=== PATIENT | female | born 1985 | race Caucasian/White ===

== ENCOUNTER 2016-09-28 17:24 | Emergency (ER) | payer BC, OTHER | END 2016-09-28 20:08 | disposition home or self-care (01) | LOC: H.EROB2 17:24 → H.L&D 18:14 → H.EROB2 20:08 | DX: O47.03 False labor before 37 completed weeks of gestation, third trimester (principal); Z3A.37 37 weeks gestation of pregnancy ==

== ENCOUNTER 2016-10-21 11:15 | Emergency (ER) | payer BC, OTHER ==
--- NOTE | 2016-10-21 13:22 | OBDCSUM ---
Datetime: 10/21/2016 13:05 Discharged to, Provider: Home Follow up at, Provider: [facility] Disch Instr Activity: Normal activity Disch Instr Diet: Regular Discharge Diagnosis, Provider: False Labor - Undelivered Discharge Time: 10/21/2016 13:10 Follow up in weeks, Provider: 10/24/16 at 8 pm for scheduled Induction Disch Referrals: None
--- NOTE | 2016-10-22 06:30 | OBHP ---
Datetime: 10/21/2016 11:30 IP Adm Impression: Term, intrauterine ; No Active Labor IP Admit Plan: Observation/Evaluation Admit Comment, IP Provider: IUP at 40+ c/o CTX pain 3/10 q 10m; no SROM; passed scant browish discharge. POBH: G1 PGYNH: denies STD PMH: denies PSH: denies NKA PSoH: denies smoking ETOH Drugs A; IUP at 40+w latent phase of labor PLAN: check NST Pelvic Type - PN: Adequate Extremities - PN: Normal Abdomen - PN: Normal Back - PN: Normal Breast - PN: Not Done Lungs - PN: Normal Heart - PN: Normal Thyroid - PN: Normal Neurologic - PN: Normal HEENT - PN: Normal General - PN: Normal Membranes, Provider: Intact Comments, ACOG Physical Exam: ROS: General: no fatigue; no wekaness HEENT: no [place]; no visual disut RESP: no cough; no SOB GI: noN/V/D : no F/U/D MS: no joint pain Pool Provider: Negative IP Hx Assessment: The History has been Reviewed and is Current EGA AdmitDate IP: 40.3 IP Chief Complaint: Uterine contractions Dilatation, Provider: 1 Effacement, Provider: long Station, Provider: high Genitourinary Exam: Normal DTRs - PN: Normal
== END 2016-10-21 13:31 | disposition home or self-care (01) ==
LOC: H.EROB2 11:15
DX: O47.1 False labor at or after 37 completed weeks of gestation (principal); Z3A.40 40 weeks gestation of pregnancy; O48.0 Post-term pregnancy

== ENCOUNTER 2016-10-22 20:50 | Observation (INO) | payer BC, OTHER ==
[2016-10-22 21:12] VITALS: BMI 33.1
--- NOTE | 2016-10-24 20:44 | OBHP ---
Datetime: 10/23/2016 09:32 IP Adm Impression: Term, intrauterine ; No Active Labor; Intact Membranes IP Admit Plan: Observation/Evaluation; Discharge home Admit Comment, IP Provider: 30-year-old 00 presented to the ED complaining of contractions. Mookie luis denies any leakage of fluids or vaginal bleeding. Patient reports good movement. records reviewed. Past medical history none Past surgical history none Medications vitamins No known drug allergies Obstetrical history first trimester spontaneous loss of 1 Social history no tobacco, no alcohol, no drugs Physical exam: Refer to physical exam findings Assessment: 30-year-old 010 at 40 weeks and 5 days gestational age with no evidence of labor at this mary e. Patient was observed at the ED for multiple hours. After reexamination, no evidence of active labo r. Maternal well-being and well-being reassuring at this time. Plan: Patient is scheduled for post dates induction of labor tomorrow. Patient discharged home with labo r precautions. Pelvic Type - PN: Adequate Extremities - PN: Normal Abdomen - PN: Normal Back - PN: Normal Breast - PN: Normal Lungs - PN: Normal Heart - PN: Normal Thyroid - PN: Normal Neurologic - PN: Normal HEENT - PN: Normal General - PN: Normal FHR - Baseline A Provider: 120s-130s Membranes, Provider: Intact Contraction Comments Provider: irregular pattern Pool Provider: Negative IP Hx Assessment: The History has been Reviewed and is Current EGA AdmitDate IP: 40.5 Vital Signs Provider: Reviewed; Within Normal Limits IP Chief Complaint: Uterine contractions NICHD Variability Prov Fetus A: Moderate 6-25bpm NICHD Accel Fetus A IP Provider: 15X15 FHR Category Provider Fetus A: Category I NICHD Decel Fetus A IP Provider: None Dilatation, Provider: 1-2 Effacement, Provider: 50 Station, Provider: -3 Genitourinary Exam: Normal DTRs - PN: Normal
== END 2016-10-23 09:47 | disposition home or self-care (01) ==
LOC: H.EROB2 20:50 → H.EROB 23:45
PROVIDERS: ADMIT Obstetrics & Gynecology; ATTEND Obstetrics & Gynecology
DX: O47.1 False labor at or after 37 completed weeks of gestation (principal); Z3A.40 40 weeks gestation of pregnancy; O48.0 Post-term pregnancy
CPT/HCPCS: 99284; G0378

== ENCOUNTER 2016-10-24 21:10 | Inpatient (IN) | payer BC, OTHER ==
[2016-10-24 22:38] LABS: ALKALINE PHOSPHATASE 152 U/L (38-126); ALT/SGPT 25 U/L (9-52); AST/SGOT 26 U/L (14-36); BILIRUBIN,TOTAL 0.1 mg/dl (0.2-1.3); BLOOD UREA NITROGEN 6 mg/dl (7-17); CARBON DIOXIDE 20 mmol/L (22-30); CHLORIDE 107 mmol/L (98-107); GFR AFRICAN-AMERICAN > 60; GLUCOSE,RANDOM 73 mg/dL (65-105); SODIUM 136 mmol/l (132-148); TOTAL PROTEIN 6.9 G/DL (6.3-8.2)
[2016-10-24 22:40] LABS: BASO % 0.2 % (0.0-2.0); EOS # 0.2 K/uL (0.0-0.7); EOS % 1.8 % (0.0-4.0); HEMATOCRIT 41.5 % (34.0-47.0); LYMPH # 1.6 K/uL (1.0-4.3); LYMPH % 15.6 % (20.0-40.0); MEAN CELL VOLUME 87.8 fl (81.0-99.0); MEAN CORPUSCULAR HEMOGLOBIN 29.4 pg (27.0-31.0); MEAN CORPUSCULAR HGB CONC 33.5 g/dL (33.0-37.0); MEAN PLATELET VOLUME 11.2 fl (7.2-11.7); MONO # 0.7 K/uL (0.0-0.8); NEUT # 7.6 K/uL (1.8-7.0); NEUT % 75.4 % (50.0-75.0); NRBC % 0.1 % (0.0-0.0); RED CELL DISTRIBUTION WIDTH 13.3 % (11.5-14.5); WHITE BLOOD COUNT 10.1 K/uL (4.8-10.8)
[2016-10-24 23:07] VITALS: BP 135/83; PULSE 76; TEMP 97.6
[2016-10-25] MEDS ORDERED: Nalbuphine 20 mg/ml Inj (1 ml) IVP PRN (00:52)
[2016-10-25 01:40] LABS: RBC URINE 2 /hpf (0-3); URINE BACTERIA MOD (<OCC); URINE BILIRUBIN NEGATIVE (NEGATIVE); URINE BLOOD SMALL (NEGATIVE); URINE COLOR YELLOW (YELLOW); URINE GLUCOSE (UA) NEG (Normal); URINE KETONE NEGATIVE (NEGATIVE); URINE LEUKOCYTE ESTERASE NEG Leu/uL (Negative); URINE PROTEIN NEGATIVE (NEGATIVE); URINE UROBILINOGEN 0.2-1.0 mg/dL (0.2-1.0); WBC URINE 2 /hpf (0-5)
[2016-10-25] MEDS: Lactated Ringer's 1,000 ML IV SCH ×4 (03:15→10:10)
[2016-10-25] MEDS ORDERED: Oxytocin 30 units/LR 500ML 30 U/500 ML BAG IV SCH (09:00)
--- NOTE | 2016-10-25 09:07 | OBPN ---
Datetime: 10/25/2016 09:01 IP Progress Impression: Normal progression of labor; Reassuring heart rate IP Informed Consent Obtain: Vaginal Delivery; Risks, Benefits and Alternatives Discussed IP Procedures: Sterile Vag Exam IP Progress Plan: Continue present management; Augmentation; Anticipate Vaginal Delivery Pool Provider: Positive Membranes, Provider: Ruptured Contraction Comments Provider: occ FHR - Baseline A Provider: 120 Presentation-Admit: Vertex IP Progress Note Comment: She had cervidil removed this morning and she was 4-5cm. She was 6cm at 6 am. A: 41w Active phase of labor slow progress secondary to irregular CTX PLAN: discussion with pt...will start Pitocin augmentation...observe progress NICHD Accel Fetus A IP Provider: 15X15 FHR Category Provider Fetus A: Category I NICHD Variability Prov Fetus A: Moderate 6-25bpm Dilatation, Provider: 5-6 Effacement, Provider: 100 Station, Provider: -1 NICHD Decel Fetus A IP Provider: None Datetime: 10/23/2016 09:32 Vital Signs Provider: Reviewed; Within Normal Limits
--- NOTE | 2016-10-25 12:17 | OBPN ---
Datetime: 10/25/2016 12:10 IP Progress Impression: Normal progression of labor; Reassuring heart rate IP Informed Consent Obtain: Vaginal Delivery; Risks, Benefits and Alternatives Discussed IP Procedures: Intrauterine Pressure Catheter IP Progress Plan: Continue present management; Augmentation Pool Provider: Positive Membranes, Provider: Ruptured Contraction Comments Provider: 2-4m FHR - Baseline A Provider: 120 Presentation-Admit: Vertex IP Progress Note Comment: SHe feels comfortable A: active pahse of labor iregualr CTX IUPC placed to better monitor CTX pattern Pitocin at 2miu/h currently NICHD Accel Fetus A IP Provider: 15X15 FHR Category Provider Fetus A: Category I NICHD Variability Prov Fetus A: Moderate 6-25bpm Dilatation, Provider: 6 Effacement, Provider: 100 Station, Provider: -1 NICHD Decel Fetus A IP Provider: None
--- NOTE | 2016-10-25 15:55 | OBPN ---
Datetime: 10/25/2016 15:50 IP Progress Impression: Normal progression of labor; Reassuring heart rate IP Informed Consent Obtain: Vaginal Delivery; Risks, Benefits and Alternatives Discussed IP Procedures: Intrauterine Pressure Catheter IP Progress Plan: Continue present management; Augmentation; Anticipate Vaginal Delivery Pool Provider: Positive Membranes, Provider: Ruptured Contraction Comments Provider: 2-3m FHR - Baseline A Provider: 130 Presentation-Admit: Vertex IP Progress Note Comment: Notified that IUPC wsa not working well/clogged? External toco placed. A: Active phase of labor PIoticn at 8miu/hr...IUPC placed to monitor CTX intensity NICHD Accel Fetus A IP Provider: 15X15 FHR Category Provider Fetus A: Category I NICHD Variability Prov Fetus A: Moderate 6-25bpm Dilatation, Provider: anterior lip Effacement, Provider: 100 Station, Provider: 0 NICHD Decel Fetus A IP Provider: None
--- NOTE | 2016-10-25 17:00 | OBADHP ---
Datetime: 10/25/2016 15:50 Presentation-Admit: Vertex FHR - Baseline A Provider: 130 Membranes, Provider: Ruptured Contraction Comments Provider: 2-3m Pool Provider: Positive NICHD Variability Prov Fetus A: Moderate 6-25bpm NICHD Accel Fetus A IP Provider: 15X15 Dilatation, Provider: anterior lip Effacement, Provider: 100 Station, Provider: 0 Datetime: 10/24/2016 21:13 Admit Comment, IP Provider: 30-year-old edc 10/18 by LMP _ 8wk us presents for induction 2nd g[address] [facility]. She receives pnc with dr. clark. Patient denies decreased fm, leakage of fluids or vaginal bleeding. Patient reports good movement. records reviewed. Past medical history none Past surgical history none Medications vitamins No known drug allergies Obstetrical history first trimester spontaneous loss of 1 Social history no tobacco, no alcohol, no drugs Pelvic Type - PN: Adequate Extremities - PN: Normal Abdomen - PN: Normal Back - PN: Normal Breast - PN: Not Done Lungs - PN: Normal Heart - PN: Normal Thyroid - PN: Normal Neurologic - PN: Normal HEENT - PN: Normal General - PN: Normal Comments, ACOG Physical Exam: GBS NEG/B+/HEPBNEG/RI IP Hx Assessment: The History has been Reviewed and is Current IP Chief Complaint: Other FHR Category Provider Fetus A: Category I NICHD Decel Fetus A IP Provider: None Genitourinary Exam: Normal DTRs - PN: Normal EGA AdmitDate IP: 40.6 IP Adm Impression: Term, intrauterine ; No Active Labor IP Admit Plan: Admit to unit; Initiate labor induction protocol Datetime: 10/23/2016 09:32 Vital Signs Provider: Reviewed; Within Normal Limits
[2016-10-25] MEDS ORDERED: ceFAZolin 2 GM in Sodium Chloride 0.9% 100 ML IVPB ONE (19:43)
[2016-10-25] MEDS ORDERED: Oxycodone/Acetaminophen 5/325 mg Tab PO PRN ×2 (21:40→23:03)
[2016-10-25] MEDS ORDERED: Simethicone 80 mg Chewtab PO SCH (22:00)
[2016-10-25] MEDS ORDERED: DiphenhydrAMINE 50 mg/ml Inj IVP PRN ×2 (23:03→23:31)
[2016-10-26] MEDS: Lactated Ringer's 1,000 ML IV SCH ×2 (02:40→08:46)
[2016-10-26 06:55] LABS: MEAN CELL VOLUME 88.3 fl (81.0-99.0); MEAN CORPUSCULAR HEMOGLOBIN 29.2 pg (27.0-31.0); RED CELL DISTRIBUTION WIDTH 13.5 % (11.5-14.5); WHITE BLOOD COUNT 18.5 K/uL (4.8-10.8)
--- NOTE | 2016-10-26 09:51 | OBPPN ---
Datetime: 10/26/2016 09:50 PP Progress Note Prov: Patient doing well ambulating sitting in chair tolerating diet reports minima l lochia pain well-controlled Vital signs stable afebrile Uterus firm below the umbilicus Incision clean dry and intact Extremities no Homans Postoperative day #2 Encourage ambulation, regular diet Motrin and Percocet as needed
[2016-10-26 17:52] LABS: EOS % 0.3 % (0.0-4.0); LYMPH # 0.9 K/uL (1.0-4.3); LYMPH % 4.7 % (20.0-40.0); MEAN CELL VOLUME 88.6 fl (81.0-99.0); MEAN CORPUSCULAR HGB CONC 32.7 g/dL (33.0-37.0); MEAN PLATELET VOLUME 10.2 fl (7.2-11.7); MONO # 0.6 K/uL (0.0-0.8); MONO % 3.2 % (0.0-10.0); NEUT # 16.8 K/uL (1.8-7.0); NEUT % 91.8 % (50.0-75.0); PLATELET COUNT 122 K/uL (130-400); RED CELL DISTRIBUTION WIDTH 13.7 % (11.5-14.5); WHITE BLOOD COUNT 18.3 K/uL (4.8-10.8)
[2016-10-26 19:56] LABS: EOSINOPHIL 1 % (0-7); NEUTROPHIL 85 % (42-75); TOTAL CELLS COUNTED 100
[2016-10-26] MEDS: Oxycodone/Acetaminophen 5/325 mg Tab PO PRN (21:36)
[2016-10-26] MEDS: Simethicone 80 mg Chewtab PO SCH (21:36)
[2016-10-27] MEDS ORDERED: cefOXitin Sodium 1 GM in Sodium Chloride 0.9% 100 ML IVPB SCH
[2016-10-27] MEDS: Simethicone 80 mg Chewtab PO SCH ×5 (05:56→21:48)
[2016-10-27 07:29] LABS: BASO % 0.2 % (0.0-2.0); EOS # 0.1 K/uL (0.0-0.7); EOS % 0.7 % (0.0-4.0); HEMATOCRIT 31.9 % (34.0-47.0); LYMPH # 0.9 K/uL (1.0-4.3); LYMPH % 5.1 % (20.0-40.0); MEAN CELL VOLUME 89.2 fl (81.0-99.0); MEAN CORPUSCULAR HEMOGLOBIN 29.4 pg (27.0-31.0); MEAN PLATELET VOLUME 9.8 fl (7.2-11.7); MONO # 0.7 K/uL (0.0-0.8); MONO % 3.9 % (0.0-10.0); NEUT # 15.4 K/uL (1.8-7.0); NEUT % 90.1 % (50.0-75.0); PLATELET COUNT 124 K/uL (130-400); RED CELL DISTRIBUTION WIDTH 13.8 % (11.5-14.5)
[2016-10-27] MEDS: Oxycodone/Acetaminophen 5/325 mg Tab PO PRN ×3 (08:50→20:29)
--- NOTE | 2016-10-27 09:02 | OBPPN ---
Datetime: 10/27/2016 08:43 PP Pain Prov: Within normal limits PP Nausea Prov: Denies PP Flatus Prov: Yes PP BM Prov: No PP Abdomen/Uterus Prov: Normal PP Lochia Prov: Normal PP C/S Incision Prov: Normal PP Progress Prov: Normal PP Impression Prov: Endometritis PP Plan Prov: Continue present management; Antibiotic therapy PP Progress Note Prov: POD 2 s/p Primary LTCS, T-inverted, for failure of descent Pt started on mefoxin for endometritis Encourage ambulation Vital Signs Provider PP: Reviewed
[2016-10-27] MEDS: cefOXitin Sodium 1 GM in Sodium Chloride 0.9% 100 ML IVPB SCH ×3 (09:22→20:27)
[2016-10-27 10:47] LABS: MYELOCYTE 1 % (0-0); NEUTROPHIL 88 % (42-75); TOTAL CELLS COUNTED 100
--- NOTE | 2016-10-27 10:52 | CP.PCM.CON ---
History of Present Illness - History of Present Illness History of Present Illness: Hospitalist Consult H&P (Patient was seen at 10:30 AM 10/27/16 [id number] with and Nurse Enriqueta present) 30 year old female who is S/P on 10/24/16 for failure to decent at 41 weeks. Medicine Team was consulted for evaluation of Tachycardia. Currently upon FULL ROS there is NO chest pain, NO palpitations, NO SOB/Cough/ Wheezing/Hemoptysis, NO dysphagia/odynophagia, NO abdominal pain, (+) Soreness in the suprapubic area at the surgical site especially when getting up from a sitting or laying down position, NO n/v/d/c (no black/bloody stools, NO burning/pain with urination, NO lightheadedness/dizziness, NO headaches, NO new changes in vision/eye pain/loss of vision, NO new changes in hearing/ear pain/tinnitus, (+) Paresthesias: numbness alternating with tingling sensation of the bilateral hands/fingers since 7 months (this was evaluated by an unspecified physician who referred patient to him by Senior Sales Associate Dr. Tapia, this is likely secondary to the edema of ). PMHx: First Trimester Loss PSHx: ALL: NDKA Medications: Please see list Social Hx: Lives with , Homemaker, NO alcohol, NO tobacco, NO illicit drugs Family Hx: Mom (), Dad (HTN) Exam: HEENT: EOMI, PERRLA, NCA, NO cervical/supraclavicular/submandibular lymphadenopathy, NO thyromegaly, NO pharyngeal erythema/exudate, Nasal Turbinates are nonerythematous but dry, Oral Mucosa is dry. Cardio: NS1 and NS2, NO M/R/G, Tachycardia at 120 bpm as measured by me Respiratory: CTA B/L, NO R/R/W, Decreased breath sounds at lung bases GI: BSx4, Distended, Soft, Tenderness to palpation at surgical site which is clean/without exudate/not warm/no erythema/sutures intact, Liver and Spleen were not examined Neuro: CN II through XII are grossly intact Extremities: 2+ Pitting Edema of the bilateral lower legs from feet to the tibial tuberosities, NON pitting edema of the bilateral forearms, Pulses are strong and equal Psychiatry: Anxious affect Assessment and Plan: 1). Sinus Tachycardia EKG done today shows Sinus Tachycardia at 124 bpms This could be secondary to multiple possible issues: infection/fever, anxiety, DVT/PE Please see below for further details. 2). Leukocytosis Patient had a Tmax of 101 at midnight last night and low grade fever of 99 earlier today Could this be secondary to Endometritis? Patient has already been started on Cefoxitin 1gm IV 4x/day by OB Florastor has been added for GI prophylaxis because she is on Cefoxitin Blood Cultures x 2 and Urine Culture ordered stat 3). Possible DVT/PE Patient has 3 Wells Criteria: recent surgery, signs of DVT on exam, and Hear Rate > 100 D-dimer not ordered as it would be likely positive considering recent C section Bilateral Upper and Lower Extremities Venous Dopplers STAT CT Angio Chest STAT 4). Anxiety This is understandable considering that this is the patient's first born child ( prior first trimester loss of ) and this child has been born with some unspecified facial asymmetry for which he is being transferred to [facility] for further evaluation. Once the DVT/PE workup is complete, we will consider ordering Metoprolol (as this will help with the SVT as well as the axiety) vs Adenosine and possible Psychiatry referral Please call me if you have any questions: [phone] Wilbur Tellez D.O. Past Patient History - Past Social History Smoking Status: Never Smoked Meds Allergies/Adverse Reactions: Allergies Allergy/AdvReac Type Severity Reaction Status Date / Time No Known Allergies Allergy Verified 09/28/16 19:26 - Medications Medications: Current Medications Diphenhydramine HCl (Benadryl) 50 mg IVP Q6 PRN PRN Reason: Itching / Pruritus Cefoxitin Sodium 1 gm/ Sodium (Chloride) 100 mls @ 100 mls/hr IVPB 0200,0800, 1400,2000 AMITA Last Admin: 10/27/16 09:22 Dose: 100 mls/hr Ibuprofen (Motrin Tab) 600 mg PO Q4H PRN PRN Reason: Pain, Mild (1-3) Ketorolac Tromethamine (Toradol) 30 mg IVP Q6 PRN PRN Reason: Pain, moderate (4-7) Last Admin: 10/26/16 11:27 Dose: 30 mg Metoclopramide HCl (Reglan) 10 mg IVP Q6H PRN PRN Reason: Nausea/Vomiting Ondansetron HCl (Zofran Inj) 4 mg IVP Q6 PRN PRN Reason: Nausea/Vomiting Oxycodone/Acetaminophen (Percocet 5/325 Mg Tab) 1 tab PO Q4 PRN PRN Reason: Pain, moderate (4-7) Stop: 10/28/16 21:41 Last Admin: 10/27/16 08:50 Dose: 1 tab Sennosides (Senokot Tab) 17.2 mg PO HS AMITA Last Admin: 10/26/16 21:35 Dose: 17.2 mg Simethicone (Mylicon Chew Tab) 80 mg PO Q6 AMITA Last Admin: 10/27/16 09:22 Dose: 80 mg Zolpidem Tartrate (Ambien) 5 mg PO HS PRN PRN Reason: Insomnia Results - Vital Signs Recent Vital Signs: Last Vital Signs Temp 97.6 F 10/24/16 23:05 Pulse 76 10/24/16 23:05 Resp BP 135/83 10/24/16 23:05 Pulse Ox - Labs Result Diagrams: 10/27/16 07:19 10/24/16 22:25 Labs: Laboratory Results - last 24 hr 10/26/16 10/27/16 17:40 07:19 WBC 18.3 H 17.0 H RBC 3.84 3.58 L Hgb 11.1 L 10.5 L Hct 34.0 31.9 L MCV 88.6 89.2 MCH 29.0 29.4 MCHC 32.7 L 33.0 RDW 13.7 13.8 Plt Count 122 L 124 L MPV 10.2 9.8 Neut % (Auto) 91.8 H 90.1 H Lymph % (Auto) 4.7 L 5.1 L [place] % (Auto) 3.2 3.9 Eos % (Auto) 0.3 0.7 Baso % (Auto) 0.0 0.2 Neut # 16.8 H 15.4 H Lymph # 0.9 L 0.9 L [place] # 0.6 0.7 Eos # 0.0 0.1 Baso # 0.0 0.0 Neutrophils % (Manual) 85 H 88 H Band Neutrophils % 3 H 4 H Lymphocytes % (Manual) 5 L 5 L Monocytes % (Manual) 6 2 Eosinophils % (Manual) 1 Myelocytes % 1 H Platelet Estimate Normal Slightly decreased L Hypochromasia (manual) Slight Slight Poikilocytosis (manual Slight Anisocytosis (manual) Slight Microcytosis (manual) Slight
[2016-10-27 11:55] LABS: ALB/GLOB RATIO 0.9 (1.0-2.1); ALKALINE PHOSPHATASE 119 U/L (38-126); ALT/SGPT 35 U/L (9-52); AST/SGOT 54 U/L (14-36); BILIRUBIN,TOTAL 0.2 mg/dl (0.2-1.3); BLOOD UREA NITROGEN 7 mg/dl (7-17); CALCIUM 8.3 mg/dL (8.4-10.2); CARBON DIOXIDE 22 mmol/L (22-30); CHLORIDE 106 mmol/L (98-107); GFR AFRICAN-AMERICAN > 60; GLUCOSE,RANDOM 113 mg/dL (65-105); POTASSIUM 3.9 MMOL/L (3.6-5.0); SODIUM 135 mmol/l (132-148); TOTAL PROTEIN 5.4 G/DL (6.3-8.2)
--- NOTE | 2016-10-27 13:39 | US ---
PROCEDURE: Bilateral lower extremity venous duplex Doppler. HISTORY: Multiple Positive Wells Criteria.S/P Diff Csec COMPARISON: None available. TECHNIQUE: Bilateral common femoral, superficial femoral, popliteal and posterior tibial veins were evaluated. Flow was assessed with color Doppler, compressibility, assessment of phasic flow and augmentation response. FINDINGS: COMMON FEMORAL VEIN: Right CFV: Unremarkable. Left CFV: Unremarkable. SUPERFICIAL FEMORAL VEIN: Right SFV: Unremarkable. Left SFV: Unremarkable. POPLITEAL VEIN: Right Popliteal: Unremarkable. Left Popliteal: Unremarkable. POSTERIOR TIBIAL VEIN: Right PTV: Unremarkable. Left PTV: Unremarkable. OTHER FINDINGS: None. IMPRESSION: No evidence of deep venous thrombosis. .
--- NOTE | 2016-10-27 13:46 | CT ---
PROCEDURE: CT Chest with contrast (Pulmonary Angiogram) HISTORY: Positive Wells Crit.S/P Diff COMPARISON: None available. TECHNIQUE: Axial computed tomography images were obtained of the chest in the pulmonary arterial phase of enhancement. Coronal and sagittal reformatted images were created and reviewed. Note that examination is limited due to suboptimal injection as well as large body habitus is crossing streak and beam hardening artifact. Intravenous contrast dose: 95 cc Visipaque 320 Radiation dose: Total exam DLP = 350.54 mGy-cm. This CT exam was performed using one or more of the following dose reduction techniques: Automated exposure control, adjustment of the mA and/or kV according to patient size, and/or use of iterative reconstruction technique. FINDINGS: PULMONARY ARTERIES: The visualized pulmonary trunk, right and left main, lobar and proximal segmental branches of the pulmonary arteries appear exhibit heterogeneous contrast enhancement which is felt to be technical as no definitive discrete filling defect identified to suggest central pulmonary embolus. Note that the segmental and subsegmental branches are poorly visualized and cannot be adequately evaluated for distal pulmonary emboli. The pulmonary trunk measures approximately 2.6 cm. AORTA: The ascending thoracic aorta measures approximately 2.6 cm. The descending thoracic aorta measures approximately 1.8 cm. No evidence of dissection so far as can be seen. . LUNGS: Mild bilateral atelectatic changes are seen within the posterior lower lung zones most pronounced at the bases. . Trace bilateral effusions. PLEURAL SPACES: Unremarkable. No effusion or pneuomothorax. HEART: Heart appears within range of normal size. No evidence of significant pericardial effusion. LYMPH NODES: No significant mediastinal or hilar adenopathy. BONES, CHEST WALL: The vertebral bodies are intact without evidence of acute or chronic compression fractures. No significant degenerative spondylosis. OTHER FINDINGS: The central airways are midline and patent with no endoluminal lesions seen. . . There is a small hiatal hernia with slight wall thickening of the distal esophagus that could be due to protrusion of gastric mucosa. Spleen appears borderline enlarged measuring nearly 12 cm in AP dimension. IMPRESSION: This is a limited study due to large body habitus and suboptimal opacification of the pulmonary arteries. No definitive central filling defects seen to suggest central pulmonary embolus. Note that distal segmental and subsegmental branches are very poorly delineated and cannot be adequately evaluated for pulmonary embolus. Small bilateral effusions and mild bilateral atelectatic changes within the posterior lung liu most pronounced at low both lung bases. These findings were discussed with Nurse Marisa at approximately 1:43 p.m. with written down and read back verification.
--- NOTE | 2016-10-27 13:47 | US ---
Bilateral upper extremity venous Doppler study 10/27/2016. History: Rule out DVT. Duplex interrogation of the deep veins of the right and left upper extremities includes the right jugular vein echo. Findings: Right internal jugular vein as well as the remaining visualized right upper extremity of deep veins including the subclavian, axillary, brachial basilic, and cephalic veins are patent without evidence of DVT. Vessels exhibit normal compressibility augmentation. Occlusive thrombus within a left-sided branchial vein however the remaining deep veins of the left upper extremity are patent. Impression: There is occlusive thrombus in the left radial vein. These findings were discussed with Nurse Marisa at approximately 1:43 p.m. with written down and read back verification.
--- NOTE | 2016-10-27 14:25 | CP.PCM.PCO ---
Physician Communication Note - Physician Communication Note Physician Communication Note: Please see above
[2016-10-27] MEDS ORDERED: Enoxaparin 100 mg Syringe SC SCH (16:00)
[2016-10-27] MEDS: Saccharomyces Boulardi 250 mg Cap PO SCH (17:59)
--- NOTE | 2016-10-27 19:18 | OP ---
PROCEDURE DATE: 10/27/2016 PREOPERATIVE DIAGNOSIS: Intrauterine at 41 weeks' gestation, failure of descent. POSTOPERATIVE DIAGNOSES: 1. Intrauterine at 41 weeks' gestation, failure of descent. 2. Thick meconium. 3. Uterine atony. PROCEDURE: Primary low transverse section via Pfannenstiel incision, also inverted T uterin e incision. was delivered breech. SURGEON: Kulwinder Tapia DO MANAGER OF FINANCIAL REPORTING: Dr. Leif Kemp (Dr. Leif Kemp is a board-certified HEALTH AND WELLNESS INSTRUCTOR physician who was availabl e to assist on this difficult case. He was there from the time of skin incision to the delivery of t he infant to the closure of the skin). ANESTHESIOLOGIST: Dr. Tariq ANESTHESIA: Spinal. JIG AND FIXTURE MAKER: ____ OPERATIVE FINDINGS: Thick meconium was noted upon incision of the uterus. Infant was wedged into th e pelvis, difficult delivery to deliver the 's head through the incision. Also, assistance was used. Nurse attempted to lift from the vagina. The was then delivered eventually from the b reech presentation after an inverted T uterine incision was made. score of 7 and 9 were given at 1 and 5 minutes respectively with caddie supervisor in attendance. Uterine atony was noted. Methergin e 0.2 mg IM, IV Pitocin and postoperative Cytotec 800 mcg were given. Cytotec was given rectally. O varies and tubes appeared to be within normal limits. Surgicel was placed on the uterine incision, h emostasis was assured. ESTIMATED BLOOD LOSS: 1000 mL PROCEDURE: The patient was brought to the operating room after she was placed in a supine position. Compression boots were placed on both lower extremities. A Hawthorne catheter was placed into the ureth ra and into the bladder and noted to be blood-tinged urine. Also, prior to draping patient, attempt was made through the vagina to elevate the 's head. She was then draped and prepped in the usu al sterile manner. Once adequate anesthesia was obtained, a Pfannenstiel incision was made using a s calpel. Incision was then taken down on to the underlying fascia using electrocautery. The fascia w as nicked in the midline. Incision was then extended bilaterally using electrocautery. Inferior asp ect of the fascia was grasped using 2 Shiva clamps and tented up and the rectus muscle was both blun tly and sharply dissected using electrocautery. The same was done with the superior aspect of the fa scia in the midline superiorly. The rectus muscle was identified, bluntly. Once the perit oneum was identified, this was tented up using 2 Marissa clamps. This was incised using Metzenbaum sci ssors. Thereafter, with careful dissection, the rectus muscle was in the midline down to t he suprapubic area. Incision on the peritoneum was then extended superiorly and inferiorly with dire ct visualization of bladder and intestines. A bladder flap was created. This was done by incising p eritoneum on the uterus above the bladder line, extending it bilaterally using Metzenbaum scissors. Bladder blade was then inserted behind the bladder flap after it was made digitally. Thereafter, an incision was made as high as possible in a transverse fashion away from the bladder and this incision was then extended bilaterally using bandage scissors. Thereafter, attempts were made to deliver the infant's head, which was noted to be wedged into the pelvis. After those attempts failed, the skin incision was extended bilaterally using a scalpel. Rectus muscle was also cut. The uterine incision was noted to be adequate and another attempt was made to deliver the but without success. De cision was made to extend the uterine incision vertically. Using bandage scissors, this incision was then extended superiorly as much as possible with direct visualization. Decision was made to delive r the infant breech. Infant's feet were both grasped and the infant was then delivered as atraumatic ally as possible. Infant was bulb suctioned nasopharyngeally. Thick meconium was noted. The 's cord was clamped and cut. was handed to the caddie supervisor in attendance. Cord bloods were obtained. Placenta was delivered intact manually. Uterus was exteriorized. IV Pitocin given. Uter ine atony was noted. IM Methergine 0.2 mg was given intraoperatively after blood pressure was checke d. The vertical incision was closed in interlocking fashion using 0 Vicryl suture in interlocking fa shion x 2 layers. Lower uterine incision was inspected and identified, 0 Vicryl suture was used to c lose this lower uterine segment using 0 Vicryl suture, first layer interlocking, second layer imbrica ting the first layer. Good hemostasis assured. Ovaries and tubes appeared to be within normal limit s. The posterior cul-de-sac was noted to be cleared of debris and clots. The decision was made to c lose the bladder flap. This was done using 2-0 chromic suture in a running fashion. Surgicel was pl aced on the uterine incision once the uterus was placed back into peritoneal cavity. 0 Vicryl suture was used to approximate the peritoneum in a running fashion. Irrigation was performed. Rectus musc le was noted to have good hemostasis. This was approximated x 2 using 0 Vicryl sutures. 0 Vicryl ferro ture was used to approximate the fascia in a running manner. Irrigation was performed. Hemostasis a ssured in the subcuticular layer using electrocautery. 2-0 plain suture was then used to approximate the subcuticular layer x 3. 3-0 Vicryl suture was used to approximate the skin. Dermabond, Steri-S trips, and a pressure bandage was applied. All equipment, sponges, needles were accounted for x 3. Kulwinder Tapia DO cc: 135 TT: 10/27/2016 19:18:39
--- NOTE | 2016-10-27 23:43 | CARD ---
APPROVED REPORT EKG Measurement Heart [id number] <Conclusion> Sinus tachycardia Possible Left atrial enlargement Borderline ECG
--- NOTE | 2016-10-28 00:56 | CP.PCM.CON ---
History of Present Illness - History of Present Illness History of Present Illness: 30 year old female with no past medical history s/p , found to have left radial and brachial vein DVTs. The patient denies a history of trauma to her extremities or immobility. She has never had a blood clot in the past and denies a family history of blood clots. Past medical history: None Past surgical history: Family history: Denies hematologic and oncologic problems Social history: Denies tobacco, alcohol, and illicit drug use. Allergies: NKA Review of systems: All remaining review of systems including HEENT, cardiovascular, respiratory, gastrointestinal, genitourinary, musculoskeletal, dermatologic, neurologic, and psychiatric are negative unless mentioned in the HPI. Past Patient History - Past Social History Smoking Status: Never Smoked Meds Allergies/Adverse Reactions: Allergies Allergy/AdvReac Type Severity Reaction Status Date / Time No Known Allergies Allergy Verified 09/28/16 19:26 - Medications Medications: Current Medications Diphenhydramine HCl (Benadryl) 50 mg IVP Q6 PRN PRN Reason: Itching / Pruritus Enoxaparin Sodium (Lovenox) 85 mg SC Q12@0400,1600 AMITA PRN Reason: Protocol Cefoxitin Sodium 1 gm/ Sodium (Chloride) 100 mls @ 100 mls/hr IVPB 0200,0800, 1400,2000 AMITA Last Admin: 10/27/16 20:27 Dose: 100 mls/hr Ibuprofen (Motrin Tab) 600 mg PO Q4H PRN PRN Reason: Pain, Mild (1-3) Last Admin: 10/27/16 18:02 Dose: 600 mg Ketorolac Tromethamine (Toradol) 30 mg IVP Q6 PRN PRN Reason: Pain, moderate (4-7) Last Admin: 10/26/16 11:27 Dose: 30 mg Metoclopramide HCl (Reglan) 10 mg IVP Q6H PRN PRN Reason: Nausea/Vomiting Ondansetron HCl (Zofran Inj) 4 mg IVP Q6 PRN PRN Reason: Nausea/Vomiting Oxycodone/Acetaminophen (Percocet 5/325 Mg Tab) 1 tab PO Q4 PRN PRN Reason: Pain, moderate (4-7) Stop: 10/28/16 21:41 Last Admin: 06/22/17 20:29 Dose: 1 tab Saccharomyces Boulardii (Florastor) 250 mg PO BID [facility] Last Admin: 10/27/16 17:59 Dose: 250 mg Sennosides (Senokot Tab) 17.2 mg PO HS [facility] Last Admin: 10/27/16 21:48 Dose: 17.2 mg Simethicone (Mylicon Chew Tab) 80 mg PO Q6 [facility] Last Admin: 10/27/16 21:48 Dose: 80 mg Zolpidem Tartrate (Ambien) 5 mg PO HS PRN PRN Reason: Insomnia Physical Exam - Head Exam Head Exam: ATRAUMATIC - Eye Exam Eye Exam: Normal appearance - ENT Exam ENT Exam: Mucous Membranes Dry - Respiratory Exam Respiratory Exam: NORMAL BREATHING PATTERN - Cardiovascular Exam Cardiovascular Exam: +S1, +S2 - GI/Abdominal Exam GI & Abdominal Exam: Normal Bowel Sounds - Extremities Exam Extremities exam: Positive for: pedal edema - Neurological Exam Neurological exam: Oriented x3 - Psychiatric Exam Psychiatric exam: Normal Affect, Normal Mood - Skin Skin Exam: Warm Results - Vital Signs Recent Vital Signs: Last Vital Signs Temp 97.6 F 10/24/16 23:05 Pulse 76 10/24/16 23:05 Resp BP 135/83 10/24/16 23:05 Pulse Ox - Labs Result Diagrams: 10/27/16 07:19 10/27/16 11:20 Labs: Laboratory Results - last 24 hr 10/27/16 10/27/16 07:19 11:20 WBC 17.0 H RBC 3.58 L Hgb 10.5 L Hct 31.9 L MCV 89.2 MCH 29.4 MCHC 33.0 RDW 13.8 Plt Count 124 L MPV 9.8 Neut % (Auto) 90.1 H Lymph % (Auto) 5.1 L [place] % (Auto) 3.9 Eos % (Auto) 0.7 Baso % (Auto) 0.2 Neut # 15.4 H Lymph # 0.9 L [place] # 0.7 Eos # 0.1 Baso # 0.0 Neutrophils % (Manual) 88 H Band Neutrophils % 4 H Lymphocytes % (Manual) 5 L Monocytes % (Manual) 2 Myelocytes % 1 H Platelet Estimate Slightly decreased L Hypochromasia (manual) Slight Sodium 135 Potassium 3.9 Chloride 106 Carbon Dioxide 22 Anion Gap 11 BUN 7 Creatinine 0.6 L Est GFR ( Amer) > 60 Est GFR (Non-Af Amer) > 60 Random Glucose 113 H Calcium 8.3 L Total Bilirubin 0.2 AST 54 H D ALT 35 Alkaline Phosphatase 119 Total Protein 5.4 L Albumin 2.5 L D Globulin 2.9 Albumin/Globulin Ratio 0.9 L Assessment & Plan (1) DVT (deep vein thrombosis) in Assessment and Plan: agree with therapeutic anticoagulation agree with evaluating for inherited thrombophilia. If negative, DVT would likely be related to hypercoagulable state from pt currently on therapeutic lovenox and would recommend starting coumadin 5 mg PO daily tomorrow (coumadin does not pass into breast milk) cont. lovenox until until INR 2-3. outpatient f/u with me in 1 week for INR check Status: Acute (2) Anemia Assessment and Plan: secondary to Status: Acute (3) Thrombocytopenia Assessment and Plan: mild ?gestational thrombocytopenia Status: Acute (4) Leukocytosis Assessment and Plan: likely reactive Thank you for this interesting consult. Status: Acute
[2016-10-28] MEDS: cefOXitin Sodium 1 GM in Sodium Chloride 0.9% 100 ML IVPB SCH ×2 (01:41→08:18)
[2016-10-28] MEDS ORDERED: Enoxaparin 100 mg Syringe SC SCH (04:00)
[2016-10-28] MEDS: Simethicone 80 mg Chewtab PO SCH ×2 (04:09→10:05)
[2016-10-28 07:20] LABS: BASO % 0.4 % (0.0-2.0); EOS # 0.2 K/uL (0.0-0.7); EOS % 2.1 % (0.0-4.0); HEMATOCRIT 30.6 % (34.0-47.0); LYMPH # 0.9 K/uL (1.0-4.3); LYMPH % 8.3 % (20.0-40.0); MEAN CORPUSCULAR HEMOGLOBIN 29.9 pg (27.0-31.0); MEAN PLATELET VOLUME 10.1 fl (7.2-11.7); MONO # 0.5 K/uL (0.0-0.8); MONO % 4.4 % (0.0-10.0); NEUT # 9.6 K/uL (1.8-7.0); NEUT % 84.8 % (50.0-75.0); RED CELL DISTRIBUTION WIDTH 13.4 % (11.5-14.5); WHITE BLOOD COUNT 11.3 K/uL (4.8-10.8)
[2016-10-28 07:45] LABS: PARTIAL THROMBOPLASTIN TIME 38.6 Seconds (25.6-37.1)
[2016-10-28 07:46] LABS: ALB/GLOB RATIO 0.8 (1.0-2.1); ALKALINE PHOSPHATASE 192 U/L (38-126); ALT/SGPT 61 U/L (9-52); AST/SGOT 106 U/L (14-36); BILIRUBIN,TOTAL 0.4 mg/dl (0.2-1.3); BLOOD UREA NITROGEN 6 mg/dl (7-17); CARBON DIOXIDE 24 mmol/L (22-30); CHLORIDE 107 mmol/L (98-107); GFR AFRICAN-AMERICAN > 60; GLUCOSE,RANDOM 78 mg/dL (65-105); POTASSIUM 3.8 MMOL/L (3.6-5.0); SODIUM 139 mmol/l (132-148); TOTAL PROTEIN 5.5 G/DL (6.3-8.2)
[2016-10-28] MEDS: Saccharomyces Boulardi 250 mg Cap PO SCH (10:05)
--- NOTE | 2016-10-28 10:11 | OBDS ---
DELIVERY PERSONNEL Delivery Doctor: Levar Tapia DO Art Specialist: Tiffanie Rai RN Anesthesiologist: Staci Tariq MD MATERNAL INFORMATION Delivery Anesthesia: Epidural Medications in Delivery: Oxytocin, Methergine, and Cytotec Estimated Blood Loss (ml): 1000 Placenta Cultured: No Maternal Complications: Other Other Maternal Complications: Uterine atony RN Comments: Hawthorne catheter inserted prior to surgery start, blood tinged urine noted-clearing post- op; Thick meconium noted in OR after uterine incision; Assisted Dr. Tapia in attempted to push baby's h ead up due to baby being wedged in patient's pelvis; baby delivered breech with a T extension incisio n. Methergine 0.2mg given IM at 2044 for uterine atony; Cytotec 800mg given rectally at 2129. Provider Comments: Pre Op Dx Failure of descent Post Op Dx same/thick meconium/Uterine atony Procedure: Primary C/S LTCS + inverted T via Pfannenstiel incision/delivered breech Surgeon Dr Tapia Asst Dr Kemp Anesth: Dr Tariq Anesth: spinal Peds: Dr Gtz Operative findings: -Thick meconium upon uterine incision -infant wedged into pelvis -Delivered breech - using inverted T uterine incision - 7,9 Peds in attendance -Uterine atony: Methergine 0.2mg IM and Pitocin IV given/post op Cytotec 800mcg one dose -Ovaries and fallopian tubes WNL -Surgicel placed on uterine incision -Hemostasis assured/EBL 1000cc She remained stable LABOR SUMMARY EDC: 10/18/2016 00:00 No. Babies in Womb: 1 Attempted: No Labor Anesthesia: Epidural LABOR INFORMATION Reason for Induction: Postterm Onset of Labor: 10/25/2016 04:05 Complete Dilatation: 10/25/2016 16:50 Cervical Ripening Agents: Cervidil Other Ripening Agents: Cervidil taken out Other Ripening Agents: Cervidil inserted by Dr. Rodriguez Oxytocin: Augmentation Group B Beta Strep: Negative Group B Beta Strep: Negative Steroids Given: None Reason Steroids Not Administered: Not Applicable MEMBRANES Membranes Rupture Method: Spontaneous Membranes Rupture Method: Spontaneous Membranes Rupture Method: Spontaneous Membranes Rupture Method: Spontaneous Membranes Rupture Method: Spontaneous Membranes Rupture Method: Spontaneous Membranes Rupture Method: Spontaneous Membranes Rupture Method: Spontaneous Membranes Rupture Method: Spontaneous Membranes Rupture Method: Spontaneous Membranes Rupture Method: Spontaneous Membranes Rupture Method: Spontaneous Membranes Rupture Method: Spontaneous Membranes Rupture Method: Spontaneous Membranes Rupture Method: Spontaneous Membranes Rupture Method: Spontaneous Membranes Rupture Method: Spontaneous Membranes Rupture Method: Spontaneous Membranes Rupture Method: Spontaneous Membranes Rupture Method: Spontaneous Membranes Rupture Method: Spontaneous Membranes Rupture Method: Spontaneous Membranes Rupture Method: Spontaneous Rupture of Membranes: 10/25/2016 08:59 Rupture of Membranes: 10/25/2016 08:59 Rupture of Membranes: 10/25/2016 08:59 Rupture of Membranes: 10/25/2016 08:59 Rupture of Membranes: 10/25/2016 08:59 Rupture of Membranes: 10/25/2016 08:59 Rupture of Membranes: 10/25/2016 08:59 Rupture of Membranes: 10/25/2016 08:59 Rupture of Membranes: 10/25/2016 08:59 Rupture of Membranes: 10/25/2016 08:59 Rupture of Membranes: 10/25/2016 08:59 Rupture of Membranes: 10/25/2016 08:59 Length of Rupture (hrs): 11.58 Length of Rupture (hrs): 11.58 Length of Rupture (hrs): 11.58 Length of Rupture (hrs): 11.58 Length of Rupture (hrs): 11.58 Length of Rupture (hrs): 11.58 Length of Rupture (hrs): 11.58 Length of Rupture (hrs): 11.58 Length of Rupture (hrs): 11.58 Length of Rupture (hrs): 11.58 Length of Rupture (hrs): 11.58 Length of Rupture (hrs): 11.58 Amniotic Fluid Color: Clear Amniotic Fluid Color: Clear Amniotic Fluid Color: Clear Amniotic Fluid Color: Clear Amniotic Fluid Color: Clear Amniotic Fluid Color: Clear Amniotic Fluid Color: Clear Amniotic Fluid Color: Clear Amniotic Fluid Color: Clear Amniotic Fluid Color: Clear Amniotic Fluid Color: Clear Amniotic Fluid Color: Clear Amniotic Fluid Color: Clear Amniotic Fluid Color: Clear Amniotic Fluid Color: Clear Amniotic Fluid Color: Clear Amniotic Fluid Color: Clear Amniotic Fluid Color: Clear Amniotic Fluid Color: Clear Amniotic Fluid Color: Clear Amniotic Fluid Color: Clear Amniotic Fluid Color: Clear Amniotic Fluid Color: Clear Amniotic Fluid Amount: Moderate Amniotic Fluid Amount: Moderate Amniotic Fluid Amount: Moderate Amniotic Fluid Amount: Moderate Amniotic Fluid Amount: Moderate Amniotic Fluid Amount: Moderate Amniotic Fluid Amount: Moderate Amniotic Fluid Amount: Moderate Amniotic Fluid Amount: Moderate Amniotic Fluid Amount: Moderate Amniotic Fluid Amount: Moderate Amniotic Fluid Amount: Moderate Amniotic Fluid Amount: Moderate Amniotic Fluid Amount: Moderate Amniotic Fluid Amount: Moderate Amniotic Fluid Amount: Moderate Amniotic Fluid Amount: Moderate Amniotic Fluid Amount: Moderate Amniotic Fluid Amount: Moderate Amniotic Fluid Amount: Moderate Amniotic Fluid Amount: Moderate Amniotic Fluid Amount: Moderate Amniotic Fluid Amount: Moderate Amniotic Fluid Amount: None Amniotic Fluid Amount: None Amniotic Fluid Odor: Normal Amniotic Fluid Odor: Normal Amniotic Fluid Odor: Normal Amniotic Fluid Odor: Normal Amniotic Fluid Odor: Normal Amniotic Fluid Odor: Normal Amniotic Fluid Odor: Normal Amniotic Fluid Odor: Normal Amniotic Fluid Odor: Normal Amniotic Fluid Odor: Normal Amniotic Fluid Odor: Normal Amniotic Fluid Odor: Normal Amniotic Fluid Odor: Normal Amniotic Fluid Odor: Normal Amniotic Fluid Odor: Normal Amniotic Fluid Odor: Normal Amniotic Fluid Odor: Normal Amniotic Fluid Odor: Normal Amniotic Fluid Odor: Normal Amniotic Fluid Odor: Normal Amniotic Fluid Odor: Normal Amniotic Fluid Odor: Normal STAGES OF LABOR Stage 1 hrs: 12 Stage 1 min: 45 Stage 2 hrs: 3 Stage 2 min: 44 Stage 3 hrs: 0 Stage 3 min: 0 Total Time in Labor hrs: 16 Total Time in Labor min: 29 CSECTION DELIVERY Primary Indication: Failure of Descent CSection Urgency: Non Elective CSection Incidence: Primary Labor: Labor Elective: Nonelective CSection Incision: Lower Uterine Transverse; T Extension of Incision Uterine Closure: Double-layer closure BABY A INFORMATION Infant Delivery Date/Time: 10/25/2016 20:34 Method of Delivery: Born in Route : No : N/A Forceps: N/A Vacuum Extraction: N/A Shoulder Dystocia : No SHOULDER DYSTOCIA BABY A Infant Delivery Date/Time: 10/25/2016 20:34 PRESENTATION/POSITION BABY A Presentation: Breech PLACENTA INFORMATION BABY A Placenta Delivery Time : 10/25/2016 20:34 Placenta Method of Delivery: Manual Removal Placenta Status: Delivered SCORES BABY A Heart Rate 1 min: >100 bpm Resp Effort 1 min: Slow, Irregular Reflex Irritability 1 min: Grimace Muscle Tone 1 min: Active Motion Color 1 min: Body [place], Extremities Blue Resuscitation Effort 1 min: Tactile Stimulation; Oxygen SCORE 1 MIN: 7 Heart Rate 5 min: >100 bpm Resp Effort 5 min: Good Cry Reflex Irritability 5 min: Cough or Sneeze or Pulls Away Muscle Tone 5 min: Active Motion Color 5 min: Body [place], Extremities Blue Resuscitation Effort 5 min: N/A SCORE 5 MIN: 9 INFANT INFORMATION BABY A Gestational Age at Delivery: 41.0 Gestational Status: Post-term Infant Outcome : Liveborn Infant Condition : Stable Sex: Male IDENTIFICATION/MEDS BABY A ID Band Number: [id number] ID Band Location: Left Leg; Left Arm WEIGHT/LENGTH BABY A Infant Birthweight (gms): 3825 Weight (lb): 8 Infant Weight (oz): 7 Length Inches: 21.00 Length cms: 53.3 CORD INFORMATION BABY A No. Cord Vessels: 3 Nuchal Cord : N/A Cord pH Baby Arterial: 7.16 Cord Blood Taken: Yes Suction: Mouth; Nose; Pharynx ASSESSMENT BABY A Complications: Meconium Respirations: Nasal Flaring Drum Drier/ALS Called : No Care By: Levar Dempsey, RN, Mirella Ricketts RN Transferred To: Nursery
--- NOTE | 2016-10-28 10:11 | OBDCSUM ---
Datetime: 10/23/2016 09:37 Discharge Instructions, Provider: Routine instructions given Discharge Diagnosis, Provider: Term Delivered Contraception discussed, Prov: Yes Disch Activity Restrictions: No sexual activity; Nothing in vagina - [place], tampons, douche Discharge Comment, Provider: Patient cleared for discharge Contraception after Delivery: Undecided
--- NOTE | 2016-10-28 10:11 | OBDS ---
DELIVERY PERSONNEL Delivery Doctor: Levar Tapia DO Office Machine Installer: Tiffanie Rai RN Anesthesiologist: Staci Tariq MD MATERNAL INFORMATION Delivery Anesthesia: Epidural Medications in Delivery: Oxytocin, Methergine, and Cytotec Estimated Blood Loss (ml): 1000 Placenta Cultured: No Maternal Complications: Other Other Maternal Complications: Uterine atony RN Comments: Hawthorne catheter inserted prior to surgery start, blood tinged urine noted-clearing post- op; Thick meconium noted in OR after uterine incision; Assisted Dr. Tapia in attempted to push baby's h ead up due to baby being wedged in patient's pelvis; baby delivered breech with a T extension incisio n. Methergine 0.2mg given IM at 2044 for uterine atony; Cytotec 800mg given rectally at 2129. Provider Comments: Pre Op Dx Failure of descent Post Op Dx same/thick meconium/Uterine atony Procedure: Primary C/S LTCS + inverted T via Pfannenstiel incision/delivered breech Surgeon Dr Tapia Asst Dr Kemp Anesth: Dr Tariq Anesth: spinal Peds: Dr Gtz Operative findings: -Thick meconium upon uterine incision -infant wedged into pelvis -Delivered breech - using inverted T uterine incision - 7,9 Peds in attendance -Uterine atony: Methergine 0.2mg IM and Pitocin IV given/post op Cytotec 800mcg one dose -Ovaries and fallopian tubes WNL -Surgicel placed on uterine incision -Hemostasis assured/EBL 1000cc She remained stable LABOR SUMMARY EDC: 10/18/2016 00:00 No. Babies in Womb: 1 Attempted: No Labor Anesthesia: Epidural LABOR INFORMATION Reason for Induction: Postterm Onset of Labor: 10/25/2016 04:05 Complete Dilatation: 10/25/2016 16:50 Cervical Ripening Agents: Cervidil Other Ripening Agents: Cervidil inserted by Dr. Rodriguez Oxytocin: Augmentation Group B Beta Strep: Negative Steroids Given: None Reason Steroids Not Administered: Not Applicable MEMBRANES Membranes Rupture Method: Spontaneous Rupture of Membranes: 10/25/2016 08:59 Length of Rupture (hrs): 11.58 Amniotic Fluid Color: Clear Amniotic Fluid Amount: Moderate Amniotic Fluid Odor: Normal STAGES OF LABOR Stage 1 hrs: 12 Stage 1 min: 45 Stage 2 hrs: 3 Stage 2 min: 44 Stage 3 hrs: 0 Stage 3 min: 0 Total Time in Labor hrs: 16 Total Time in Labor min: 29 CSECTION DELIVERY Primary Indication: Failure of Descent CSection Urgency: Non Elective CSection Incidence: Primary Labor: Labor Elective: Nonelective CSection Incision: Lower Uterine Transverse; T Extension of Incision Uterine Closure: Double-layer closure BABY A INFORMATION Delivery Date/Time: 10/25/2016 20:34 Method of Delivery: Born in Route : No : N/A Forceps: N/A Vacuum Extraction: N/A Shoulder Dystocia : No SHOULDER DYSTOCIA BABY A Infant Delivery Date/Time: 10/25/2016 20:34 PRESENTATION/POSITION BABY A Presentation: Breech PLACENTA INFORMATION BABY A Placenta Delivery Time : 10/25/2016 20:34 Placenta Method of Delivery: Manual Removal Placenta Status: Delivered SCORES BABY A Heart Rate 1 min: >100 bpm Resp Effort 1 min: Slow, Irregular Reflex Irritability 1 min: Grimace Muscle Tone 1 min: Active Motion Color 1 min: Body [place], Extremities Blue Resuscitation Effort 1 min: Tactile Stimulation; Oxygen SCORE 1 MIN: 7 Heart Rate 5 min: >100 bpm Resp Effort 5 min: Good Cry Reflex Irritability 5 min: Cough or Sneeze or Pulls Away Muscle Tone 5 min: Active Motion Color 5 min: Body [place], Extremities Blue Resuscitation Effort 5 min: N/A SCORE 5 MIN: 9 INFANT INFORMATION BABY A Gestational Age at Delivery: 41.0 Gestational Status: Post-term Infant Outcome : Liveborn Infant Condition : Stable Sex: Male IDENTIFICATION/MEDS BABY A ID Band Number: [id number] ID Band Location: Left Leg; Left Arm WEIGHT/LENGTH BABY A Birthweight (gms): 3825 Weight (lb): 8 Weight (oz): 7 Length Inches: 21.00 Infant Length cms: 53.3 CORD INFORMATION BABY A No. Cord Vessels: 3 Nuchal Cord : N/A Cord pH Baby Arterial: 7.16 Cord Blood Taken: Yes Suction: Mouth; Nose; Pharynx ASSESSMENT BABY A Infant Complications: Meconium Infant Respirations: Nasal Flaring Shot Fireman/ALS Called : No Care By: Levar Dempsey, RN, Mirella Ricketts RN Transferred To: Nursery
--- NOTE | 2016-10-28 10:11 | OBPPN ---
Datetime: 10/28/2016 09:19 PP Pain Prov: Within normal limits PP Nausea Prov: Denies PP Flatus Prov: Yes PP Breasts Prov: Not Done PP Heart Prov: Normal PP Lungs Prov: Normal PP Abdomen/Uterus Prov: Not Done PP Lochia Prov: Not Done PP Vulva/Perineum Prov: Not Done PP CVA Tenderness Prov: Normal PP Extremities Prov: Normal PP C/S Incision Prov: Normal PP Impression Prov: Normal progression PP Plan Prov: Discharge PP Progress Note Prov: Patient doing well and no complaints denies shortness of breath chest pain pa lpitations pain well-controlled with Motrin ambulating tolerating diet and voiding without difficulty Vital signs stable afebrile Uterus firm below the umbilicus Incision clean dry and intact Extremities no Homans Postoperative day #3 Discharged home Motrin for pain No heavy lifting Nothing per vagina Patient currently on Lovenox Patient to follow up with hematology oncology Vital Signs Provider PP: Reviewed
--- NOTE | 2016-10-28 12:14 | CP.PCM.PN ---
Subjective - Date & Time of Evaluation Date of Evaluation: 10/28/16 Time of Evaluation: 10:30 - Subjective Subjective: - Patient was seen resting comfortably in the chair. She denies any overnight events. Denies any chest pain, SOB, Fever N/V. Her arm swelling appears to be decreased noticed by the patient. Patient spoke with Dr. Rico yesterday and have already set an appointment for next Monday. Coronary Care Unit Nurse has came by and spoke to the patient on foods which are appropriate to eat with warfarin Objective - Vital Signs/Intake and Output Vital Signs (last 24 hours): Temp Pulse Resp BP Pulse Ox 97.6 F 76 135/83 10/24/16 23:05 10/24/16 23:05 10/24/16 23:05 - Medications Medications: Current Medications Diphenhydramine HCl (Benadryl) 50 mg IVP Q6 PRN PRN Reason: Itching / Pruritus Enoxaparin Sodium (Lovenox) 85 mg SC Q12@0400,1600 [facility] PRN Reason: Protocol Last Admin: 10/28/16 04:04 Dose: 85 mg Cefoxitin Sodium 1 gm/ Sodium (Chloride) 100 mls @ 100 mls/hr IVPB 0200,0800, 1400,2000 [facility] Last Admin: 10/28/16 08:18 Dose: 100 mls/hr Ketorolac Tromethamine (Toradol) 30 mg IVP Q6 PRN PRN Reason: Pain, moderate (4-7) Last Admin: 10/26/16 11:27 Dose: 30 mg Metoclopramide HCl (Reglan) 10 mg IVP Q6H PRN PRN Reason: Nausea/Vomiting Ondansetron HCl (Zofran Inj) 4 mg IVP Q6 PRN PRN Reason: Nausea/Vomiting Oxycodone/Acetaminophen (Percocet 5/325 Mg Tab) 1 tab PO Q4 PRN PRN Reason: Pain, moderate (4-7) Stop: 10/28/16 21:41 Last Admin: 10/27/16 20:29 Dose: 1 tab Saccharomyces Boulardii (Florastor) 250 mg PO BID [facility] Last Admin: 10/28/16 10:05 Dose: 250 mg Sennosides (Senokot Tab) 17.2 mg PO HS [facility] Last Admin: 10/27/16 21:48 Dose: 17.2 mg Simethicone (Mylicon Chew Tab) 80 mg PO Q6 [facility] Last Admin: 10/28/16 10:05 Dose: 80 mg Zolpidem Tartrate (Ambien) 5 mg PO HS PRN PRN Reason: Insomnia - Labs Labs: 10/28/16 06:51 10/28/16 06:51 PT 12.0 Seconds (9.8-13.1) 10/28/16 06:51 INR 1.1 (0.9-1.2) 10/28/16 06:51 APTT 38.6 Seconds (25.6-37.1) H 10/28/16 06:51 - Constitutional Appears: No Acute Distress - Head Exam Head Exam: NORMAL INSPECTION - Eye Exam Eye Exam: Normal appearance Pupil Exam: NORMAL ACCOMODATION - Neck Exam Neck Exam: Normal Inspection - Respiratory Exam Respiratory Exam: Clear to Ausculation Bilateral - Cardiovascular Exam Cardiovascular Exam: REGULAR RHYTHM, +S1, +S2 - GI/Abdominal Exam GI & Abdominal Exam: Soft, Normal Bowel Sounds. absent: Tenderness - Extremities Exam Extremities Exam: absent: Calf Tenderness, Tenderness Additional comments: edematous arms and legs, no erythema noted - Neurological Exam Neurological Exam: Alert, Awake, Oriented x3 Assessment and Plan - Assessment and Plan (Free Text) Assessment: Assessment and Plan: 1). DVT in left brachial and left radial vein Left arm venous doppler was positive for DVT in the left brachial and radial vein CT Angio Chest was inconclusive but did not show any central artery occlusion Pt will be discharged home on Lovenox 85 mg SC Q 12. Stat warfarin 5mg today. Avoid NSAID's with the warfarin. Dietican consult for a warfarin diet was appreciated - Dr. Rico ([facility] was consulted). Pt has been given script for PTT/INR to be done on 10/31/16 and 11/03/16. - F/U w/ Dr. Rico next monday in his office 2). Leukocytosis ( improving) - Patient has been afebrile for more then 48 hours. - WBC has been trending down from 17 to 11.3 - Pt has been receiving Cefoxitin 1gm IV 4x/day by OB. Spoke with OB attending disaster response director will not require antibiotics for outpatient - Blood Cultures showed no growth in past 24 hours 3) Tachycardia ( Resolved) - Afebrile for more then 24 hours - could be secondary to multiple causes anxiety, infection
[2016-10-30 05:22] LABS: PHOSPHATIDYLSERINE AB IGM <25 U/mL (<25)
[2016-10-31 04:10] LABS: B2 GLYCOPROTEIN I AB(IGA) <9 SAU (<=20); B2 GLYCOPROTEIN I AB(IGG) <9 SGU (<=20); B2 GLYCOPROTEIN I AB(IGM) <9 SMU (<=20); CARDIOLIPIN AB (IGA) <11 APL (<=11); PHOSPHATIDYLSERINE AB IGA <20 U/mL (<20)
== END 2016-10-28 14:10 | disposition home or self-care (01) | DRG 765 ==
LOC: H.EROB2 21:10 → H.L&D 21:20 → H.OB/GYN 10-26 00:30
PROVIDERS: ADMIT Obstetrics & Gynecology; ATTEND Obstetrics & Gynecology
PROC: 4A1HXCZ Monitoring of Products of Conception, Cardiac Rate, External Approach (ICD-10-PCS; 2016-10-24)
PROC: 10D00Z1 Extraction of Products of Conception, Low, Open Approach (ICD-10-PCS; principal; 2016-10-25)
DX: O32.4XX0 Maternal care for high head at term, not applicable or unspecified (principal); O75.3 Other infection during labor; D69.59 Other secondary thrombocytopenia; O99.12 Other diseases of the blood and blood-forming organs and certain disorders involving the immune mechanism complicating childbirth; Z37.0 Single live birth; O99.344 Other mental disorders complicating childbirth; O48.0 Post-term pregnancy; O32.1XX0 Maternal care for breech presentation, not applicable or unspecified; Z3A.41 41 weeks gestation of pregnancy; O77.0 Labor and delivery complicated by meconium in amniotic fluid; N71.9 Inflammatory disease of uterus, unspecified; O62.2 Other uterine inertia; F41.9 Anxiety disorder, unspecified; O99.02 Anemia complicating childbirth